=== PATIENT | female | born 1990 | race Caucasian/White ===

== ENCOUNTER 2017-05-17 23:00 | Emergency (ER) | payer MEDICAID, OTHER ==
[2017-05-17 23:06] VITALS: BP 126/92
[2017-05-17] MEDS ORDERED: Alum Hydrox/Mag Hydrox/Simeth 30 ML, Lidocaine 2% 15 ML PO ONE ×2 (23:18)
--- NOTE | 2017-05-17 23:27 | EDM.PDOC ---
ED HPI GENERAL MEDICAL PROBLEM - General Chief Complaint: General Stated Complaint: HEADACHE, STOMACH ACHE, NAUSEA, PAINFUL SWALLOWING Time Seen by Provider: 05/17/17 23:15 Source of Information: Reports: Patient History Limitations: Reports: No Limitations - History of Present Illness INITIAL COMMENTS - FREE TEXT/NARRATIVE: States that she has not felt well for a week. Has a constant burning in her midepigastric area that gets worse when she swallows or burps. Is able to eat and drink and food does not get stuck. Feels nauseated all the time but has not vomited. No diarrhea or constipation. Has been getting intermittent "bad headaches like a migraine" on and off during the wee also. States that it just seems to be getting worse. Took a vicoden at about 8:30 this evening that did help her headache. Does feel weak at times. Onset: Gradual Location: Reports: Head, Abdomen Quality: Reports: Burning - Related Data Allergies Allergy/AdvReac Type Severity Reaction Status Date / Time ondansetron HCl [From Zofran] Allergy Mild Swollen Verified 05/17/17 23:01 Eyes azithromycin [From Zithromax] Allergy Hives Verified 05/17/17 23:01 cephalexin [Cephalexin] Allergy Facial Verified 05/17/17 23:01 Swelling latex Allergy Rash Verified 05/17/17 23:01 Penicillins Allergy Cannot Verified 05/17/17 23:01 Remember tramadol Allergy Vomiting Verified 05/17/17 23:01 Home Meds: Home Meds Insulin Glarg,Human.Rec.Analog [LantUS] 27 unit SQ DAILY 09/17/13 [History] Gabapentin [Gabapentin] 600 mg PO DAILY 06/21/16 [History] Insulin Aspart [NovoLOG] 0 - 20 units SUBCUT WITHMEALSANDBED 03/09/17 [History] Guaifenesin/Pseudoephedrne HCl [Mucinex D ER Tablet] 1 tab PO DAILY 05/17/17 [ History] Past Medical History Genitourinary History: Reports: None 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: Neurological History: Reports: None Psychiatric History: Reports: None Endocrine/Metabolic History: Reports: Diabetes, Type I Hematologic History: Reports: None Immunologic History: Reports: None Oncologic (Cancer) History: Reports: None Dermatologic History: Reports: None - Infectious Disease History Infectious Disease History: Reports: None - Past Surgical History HEENT Surgical History: Reports: Adenoidectomy, Tonsillectomy GI Surgical History: Reports: Appendectomy, Cholecystectomy Female Surgical History: Reports: Section Neurological Surgical History: Reports: None Social & Family History - Tobacco Use Smoking Status *Q: Current Every Day Smoker Years of Tobacco use: 8 Packs/Tins Daily: 0.5 Second Hand Smoke Exposure: Yes - Caffeine Use Caffeine Use: Reports: Soda, Tea - Alcohol Use Days Per Week of Alcohol Use: 0 - Recreational Drug Use Recreational Drug Use: No ED ROS GENERAL - Review of Systems Review Of Systems: See Below Constitutional: Reports: Weakness. Denies: Fever, Chills HEENT: Reports: No Symptoms Respiratory: Reports: No Symptoms Cardiovascular: Reports: No Symptoms GI/Abdominal: Reports: Abdominal Pain, Nausea. Denies: Constipation, Diarrhea, Vomiting : Reports: No Symptoms Musculoskeletal: Reports: No Symptoms Skin: Reports: No Symptoms Neurological: Reports: Headache Psychiatric: Reports: No Symptoms ED EXAM, GENERAL - Physical Exam Exam: See Below Exam Limited By: No Limitations General Appearance: Alert, WD/WN, No Apparent Distress Ears: Normal External Exam, Normal Canal, Normal TMs Nose: Normal Inspection Throat/Mouth: Normal Inspection, Normal Oropharynx, Normal Voice, No Airway Compromise Head: Atraumatic, Normocephalic Neck: Normal Inspection, Supple, Non-Tender, Full Range of Motion Respiratory/Chest: No Respiratory Distress, Lungs Clear, Normal Breath Sounds Cardiovascular: Regular Rate, Rhythm, No Edema, No Murmur GI/Abdominal: Normal Bowel Sounds, Soft, Non-Tender (not able to reproduce any of the midepigastric pain that she has been having.) Extremities: Normal Inspection, No Pedal Edema, Normal Capillary Refill Neurological: Alert, Oriented Skin Exam: Warm, Dry, Intact Course - Vital Signs Last Recorded V/S: Last Vital Signs Temp 96 F 05/17/17 23:04 Pulse 89 05/17/17 23:04 Resp 16 05/17/17 23:04 BP 126/92 H 05/17/17 23:04 Pulse Ox 98 05/17/17 23:04 - Orders/Labs/Meds Orders: Active Orders 24 hr Category Date Time Status BASIC METABOLIC PANEL,BMP [CHEM] Stat Lab 05/17/17 23:35 Received C-REACTIVE PROTEIN [CHEM] Stat Lab 05/17/17 23:35 Received UA W/MICROSCOPIC [URIN] Stat Lab 05/17/17 23:20 Results Promethazine [Phenergan] Med 05/17/17 23:50 Once 50 mg IM NOW ONE Labs: Laboratory Tests 05/17/17 05/17/17 05/17/17 Range/Units 23:20 23:23 23:35 WBC 8.7 (5.0-10.0) 10^3/uL RBC 4.41 (4.00-5.50) 10^6/uL Hgb 13.9 (12.0-16.0) g/dL Hct 41.0 (37.0-47.0) % MCV 93.0 (82.0-94.0) fL MCH 31.5 (27.0-32.0) pg MCHC 33.9 (33.0-38.0) g/dL RDW Coeff of [place] 11.9 (11.0-15.0) % Plt Count 291 (150-400) 10^3/uL Neut % (Auto) 58.3 (35-85) % Lymph % (Auto) 33.0 (10-55) % [place] % (Auto) 6.9 (0-16) % Eos % (Auto) 1.7 (0-5) % Baso % (Auto) 0.1 (0-3) % Neut # (Auto) 5.07 (1.80-7.00) 10^3/uL Lymph # (Auto) 2.87 (1.00-4.80) 10^3/uL [place] # (Auto) 0.60 (0.00-0.80) 10^3/uL Eos # (Auto) 0.15 (0.00-0.45) 10^3/uL Baso # (Auto) 0.01 10^3/uL Urine Color Yellow (YELLOW) Urine Appearance Clear (CLEAR) Urine pH 5.5 (4.5-8.0) Ur Specific [place] 1.025 H (1.003-1.020) Urine Protein Negative (NEGATIVE) mg/dL Urine Glucose (UA) >=1000 H (NEGATIVE) mg/dL Urine Ketones Trace H (NEGATIVE) mg/dL Urine Occult Blood Moderate H (NEGATIVE) Urine Nitrite Negative (NEGATIVE) Urine Bilirubin Negative (NEGATIVE) Urine Urobilinogen 0.2 (0.2-1.0) EU/dL Ur Leukocyte Esterase Negative (NEGATIVE) Urine HCG, Qual Negative Meds: Medications Discontinued Medications Generic Name Dose Route Start Last Admin Trade Name Earl PRN Reason Stop Dose Admin Al Hydroxide/Mg Hydroxide 30 0 ml 05/17/17 23:18 05/17/17 23:22 ml/ Lidocaine HCl 15 ml PO 05/17/17 23:19 15 ml ONETIME ONE Administration - Re-Assessments/Exams Free Text/Narrative Re-Assessment/Exam: 05/17/17 23:47 states that the burning in her chest is now gone after receiving the GI cocktail but she is still nauseated. Will medicate with Phenergan while waiting for lab results to return. 05/17/17 23:59 In to discuss all the normal lab values at this time. Her burning in the stomach and esophagus is now gone. Will discharge on carafate and prilosec. Departure - Departure Time of Disposition: 00:03 Disposition: Home, Self-Care 01 Clinical Impression: Gastritis Qualifiers: Gastritis type: unspecified gastritis Chronicity: acute Gastritis bleeding: without bleeding Qualified Code(s): K29.00 - Acute gastritis without bleeding - Discharge Information Forms: ED Department Discharge Additional Instructions: Carafate 1 gram take 4 times a day- before meals and at bedtime Prilosec 20 mg take every morning Follow up with primary care provider if not improving or if symptoms change. - Problem List & Annotations (1) Gastritis SNOMED Code(s): 3700883 Code(s): K29.70 - GASTRITIS, UNSPECIFIED, WITHOUT BLEEDING Status: Acute Priority: High Current Visit: Yes Qualifiers: Gastritis type: unspecified gastritis Gastritis bleeding: without bleeding - Problem List Review Problem List Initiated/Reviewed/Updated: Yes - My Orders Last 24 Hours: My Active Orders 05/17/17 23:20 UA W/MICROSCOPIC [URIN] Stat 05/17/17 23:35 BASIC METABOLIC PANEL,BMP [CHEM] Stat C-REACTIVE PROTEIN [CHEM] Stat 05/17/17 23:50 Promethazine [Phenergan] 50 mg IM NOW ONE - Assessment/Plan Last 24 Hours: My Active Orders 05/17/17 23:20 UA W/MICROSCOPIC [URIN] Stat 05/17/17 23:35 BASIC METABOLIC PANEL,BMP [CHEM] Stat C-REACTIVE PROTEIN [CHEM] Stat 05/17/17 23:50 Promethazine [Phenergan] 50 mg IM NOW ONE
[2017-05-17 23:50] LABS: CHLORIDE,CL 102 mEq/L (98-106); SODIUM,NA 138 mEq/L (136-145)
[2017-05-17] MEDS ORDERED: Promethazine 25 MG/ML SDV IM ONE (23:50)
== END 2017-05-18 00:10 | disposition home or self-care (01) ==
LOC: CC.ED 23:00
DX: K29.00 Acute gastritis without bleeding (principal); E10.9 Type 1 diabetes mellitus without complications; F17.210 Nicotine dependence, cigarettes, uncomplicated; Z88.8 Allergy status to other drugs, medicaments and biological substances; Z88.0 Allergy status to penicillin; Z88.5 Allergy status to narcotic agent; Z91.040 Latex allergy status; Z88.1 Allergy status to other antibiotic agents
CPT/HCPCS: 36415; 80048; 81001; 81025; 85025; 86140; 96372; 99284; A9270; J2550

== ENCOUNTER 2017-09-02 09:57 | Emergency (ER) | payer MEDICAID ==
--- NOTE | 2017-09-02 10:01 | EDM.PDOC ---
ED HPI GENERAL MEDICAL PROBLEM - General Chief Complaint: Lower Extremity Injury/Pain Stated Complaint: bilat ankle pain Time Seen by Provider: 09/02/17 10:01 Source of Information: Reports: Patient History Limitations: Reports: No Limitations - History of Present Illness INITIAL COMMENTS - FREE TEXT/NARRATIVE: Salma is a 26 year old female who presents to the ED with c/o bilateral ankle pain. She reports she was intoxicated last evening walking home in wedge heels when she twisted her ankles on the curb. She reports she twisted them and fell multiple times afterward as she continued to try and walk. She does report she also skinned both of her knees. She reports both of her ankles hurt last night but she was able to sleep. When she went to get up this morning she reports the pain was so bad she couldn't bear weight on her feet. She reports she had her boyfriend assist her down the stairs. She was ambulatory upon arrival. She reports she took Tylenol for the pain, which did not help. Onset: Today Onset Date: 09/02/17 Onset Time: 02:00 Duration: Constant Location: Reports: Lower Extremity, Left, Lower Extremity, Right Quality: Reports: Ache Severity: Moderate Improves with: Reports: Medication Worsens with: Reports: Movement Context: Reports: Activity Associated Symptoms: Reports: No Other Symptoms Treatments ARTISTIC ASSOCIATE: Reports: Acetaminophen, NSAIDS Bilateral Ankle Pain Score (Numeric/FACES): 4 - Related Data Allergies Allergy/AdvReac Type Severity Reaction Status Date / Time ondansetron HCl [From Zofran] Allergy Mild Swollen Verified 09/02/17 10:02 Eyes azithromycin [From Zithromax] Allergy Hives Verified 09/02/17 10:02 cephalexin [Cephalexin] Allergy Facial Verified 09/02/17 10:02 Swelling latex Allergy Rash Verified 09/02/17 10:02 Penicillins Allergy Cannot Verified 09/02/17 10:02 Remember tramadol Allergy Vomiting Verified 09/02/17 10:02 Home Meds: Home Meds Insulin Glarg,Human.Rec.Analog [LantUS] 27 unit SQ DAILY 09/17/13 [History] Gabapentin 600 mg PO DAILY 06/21/16 [History] Insulin Aspart [NovoLOG] 0 - 20 units SUBCUT WITHMEALSANDBED 03/09/17 [History] Guaifenesin/Pseudoephedrne HCl [Mucinex D ER Tablet] 1 tab PO DAILY 05/17/17 [ History] Past Medical History Genitourinary History: Reports: None 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: Neurological History: Reports: None Psychiatric History: Reports: None Endocrine/Metabolic History: Reports: Diabetes, Type I Hematologic History: Reports: None Immunologic History: Reports: None Oncologic (Cancer) History: Reports: None Dermatologic History: Reports: None - Infectious Disease History Infectious Disease History: Reports: None - Past Surgical History HEENT Surgical History: Reports: Adenoidectomy, Tonsillectomy GI Surgical History: Reports: Appendectomy, Cholecystectomy Female Surgical History: Reports: Section Neurological Surgical History: Reports: None Social & Family History - Family History Family Medical History: Noncontributory - Caffeine Use Caffeine Use: Reports: Soda, Tea Review of Systems - Review of Systems Review Of Systems: ROS reveals no pertinent complaints other than HPI. ED EXAM, GENERAL - Physical Exam Exam: See Below Exam Limited By: No Limitations General Appearance: Alert, WD/WN, No Apparent Distress Peripheral Pulses: 2+: Posterior Tibial (L), Posterior Tibial (R), Dorsalis Pedis (L), Dorsalis Pedis (R) Extremities: Normal Inspection, Normal Range of Motion, Non-Tender, No Pedal Edema, Normal Capillary Refill, Other (tenderness to lateral epidondyle area, no swelling or ecchymosis) Neurological: Alert, Oriented, CN II-XII Intact, Normal Cognition, Normal Gait, Normal Reflexes, No Motor/Sensory Deficits Psychiatric: Normal Affect, Normal Mood Skin Exam: Warm, Dry, Intact, Normal Color, No Rash Course - Vital Signs Last Recorded V/S: Last Vital Signs Temp 97 F 09/02/17 09:59 Pulse 101 H 09/02/17 09:59 Resp 18 09/02/17 09:59 BP 100/88 09/02/17 09:59 Pulse Ox 97 09/02/17 09:59 - Orders/Labs/Meds Orders: Active Orders 24 hr Category Date Time Status Ankle Min 3V Lt [CR] Stat Exams 09/02/17 10:06 Taken Ankle Min 3V Rt [CR] Stat Exams 09/02/17 10:06 Taken - Re-Assessments/Exams Free Text/Narrative Re-Assessment/Exam: Xrays negative for acute fracture or dislocation. Departure - Departure Time of Disposition: 10:36 Disposition: Home, Self-Care 01 Condition: Good Clinical Impression: Mild ankle sprain Qualifiers: Encounter type: initial encounter Laterality: left Qualified Code(s): S93.402A - Sprain of unspecified ligament of left ankle, initial encounter Ankle sprain Qualifiers: Encounter type: initial encounter Involved ligament of ankle: unspecified ligament Laterality: right Qualified Code(s): S93.401A - Sprain of unspecified ligament of right ankle, initial encounter - Discharge Information Instructions: Ankle Sprain, [id number] Referrals: PCP,None [Primary Care Provider] - Forms: ED Department Discharge Additional Instructions: Bilateral ankle xrays normal. May proceed with full weight bearing status. Alternate Tylenol and ibuprofen as needed for pain Ice bilateral ankles 20 minutes at a time three times a day until pain improves Follow up in clinic with PCP if symptoms worsen or do not improve in the next 7- 10 days - My Orders Last 24 Hours: My Active Orders 09/02/17 10:06 Ankle Min 3V Lt [CR] Stat Ankle Min 3V Rt [CR] Stat - Assessment/Plan Last 24 Hours: My Active Orders 09/02/17 10:06 Ankle Min 3V Lt [CR] Stat Ankle Min 3V Rt [CR] Stat
[2017-09-02 10:02] VITALS: BP 100/88
== END 2017-09-02 10:53 | disposition home or self-care (01) ==
LOC: CC.ED 09:57
DX: S93.402A Sprain of unspecified ligament of left ankle, initial encounter (principal); S93.401A Sprain of unspecified ligament of right ankle, initial encounter; E10.9 Type 1 diabetes mellitus without complications; Z88.8 Allergy status to other drugs, medicaments and biological substances; Z91.040 Latex allergy status; Z88.0 Allergy status to penicillin; Z88.5 Allergy status to narcotic agent; Z88.1 Allergy status to other antibiotic agents; Z79.899 Other long term (current) drug therapy; X50.9XXA Other and unspecified overexertion or strenuous movements or postures, initial encounter
CPT/HCPCS: 73610-LT; 73610-RT; 99283